=== PATIENT | male | born 1960 | race Caucasian/White ===

== ENCOUNTER 2022-12-03 09:07 | Outpatient (CLI) | payer OTHER, SELFPAY | END 2022-12-03 09:08 | disposition home or self-care (01) | PROVIDERS: PCP Family Medicine; Visit Provider Family Medicine | DX: Z00.00 Encounter for general adult medical examination without abnormal findings (principal); R10.9 Unspecified abdominal pain; Z12.5 Encounter for screening for malignant neoplasm of prostate; Z13.6 Encounter for screening for cardiovascular disorders | CPT/HCPCS: 80053; 80061; 84153 ==

== ENCOUNTER 2022-12-14 07:04 | Outpatient (CLI) | payer OTHER, SELFPAY ==
--- NOTE | 2022-12-14 08:33 | W.ANESCHARGE ---
Anesthesia Charges Start Date/Time Anesthesia Start Date: 12/14/22 Anesthesia Start Time: 07:54 Stop Date/Time Anesthesia Stop Date: 12/14/22 Anesthesia Stop Time: 08:31
--- NOTE | 2022-12-14 09:00 | W.ANESCHARGE ---
Anesthesia Charges Start Date/Time Anesthesia Start Date: 12/14/22 Anesthesia Start Time: 07:54 Stop Date/Time Anesthesia Stop Date: 12/14/22 Anesthesia Stop Time: 08:31
== END 2022-12-14 07:05 | disposition home or self-care (01) ==
LOC: OP CLINIC 07:05
PROVIDERS: PCP Family Medicine; Visit Provider Internal Medicine
DX: Z12.11 Encounter for screening for malignant neoplasm of colon (principal); K63.5 Polyp of colon
CPT/HCPCS: 00811; 45380; 45385; 88305; J2704

== ENCOUNTER 2024-09-07 08:04 | Outpatient (CLI) | payer MEDICARE, SELFPAY | END 2024-09-07 08:05 | disposition home or self-care (01) | LOC: NFLDREF 09-08 14:18 | PROVIDERS: PCP Family Medicine; Referring Provider Family Medicine; Visit Provider Family Medicine | DX: Z13.228 Encounter for screening for other metabolic disorders (principal); Z13.6 Encounter for screening for cardiovascular disorders; Z12.5 Encounter for screening for malignant neoplasm of prostate | CPT/HCPCS: 80053; 80061; G0103 ==

== ENCOUNTER 2025-01-20 07:49 | Outpatient (CLI) | payer MEDICARE, SELFPAY | END 2025-01-20 07:50 | disposition home or self-care (01) | LOC: RAD 07:50 | PROVIDERS: PCP Family Medicine; Visit Provider Family Medicine | DX: I25.10 Atherosclerotic heart disease of native coronary artery without angina pectoris (principal); I71.21 Aneurysm of the ascending aorta, without rupture; I34.0 Nonrheumatic mitral (valve) insufficiency; I51.7 Cardiomegaly | CPT/HCPCS: 93306 ==